=== PATIENT | male | born 1960 | race Caucasian/White ===

== ENCOUNTER 2023-05-08 04:16 | Emergency (ER) | payer OTHER, BC ==
[2023-05-08] MEDS ORDERED: Ketorolac 30 MG/ML SDV IM ONE (04:47)
[2023-05-08] MEDS ORDERED: Diphtheria,Pertussis(Acell),Tetanus Vaccine 0.5 ML Syringe IM ONE (04:48)
[2023-05-08] MEDS ORDERED: Bacitracin Oint 1 GM U/D Packet TOP ONE (05:24)
== END 2023-05-08 05:38 | disposition home or self-care (01) ==
LOC: JP.ED 04:16
DX: S60.221A Contusion of right hand, initial encounter (principal); Z23 Encounter for immunization; W22.8XXA Striking against or struck by other objects, initial encounter; Y92.89 Other specified places as the place of occurrence of the external cause; Y99.0 Civilian activity done for income or pay
CPT/HCPCS: 73130; 90471; 90715; 96372; 99283; J1885; 99282